=== PATIENT | male | born 1950 | race Caucasian/White ===

== ENCOUNTER 2020-10-06 17:16 | Emergency (ER) | payer MEDICARE ==
[~2020-10-06] VITALS: Ht 188 cm; Wt 97.5 kg
[2020-10-06] MEDS ORDERED: ONDANSETRON HCL INJ 2MG/ML 2ML 2 MG/ML VIAL IV STA (17:28)
[2020-10-06] MEDS ORDERED: MORPHINE SULFATE INJ 4 MG/ML INJ 1ML IV STA (17:28)
[2020-10-06] MEDS ORDERED: LACTATED RINGER'S 1,000 ML INJ SCH (17:30)
[2020-10-06] MEDS ORDERED: ASPIRIN 81 MG CHEW TAB PO ONE (17:30)
[2020-10-06] MEDS ORDERED: MORPHINE SULFATE INJ 2 MG/ML SYR ONE (17:38)
[2020-10-06] MEDS ORDERED: LACTATED RINGER'S 1,000 ML ONE (17:38)
[2020-10-06 17:41] LABS: BASOPHILS # (AUTO) 0.1 (0.0-0.1); BASOPHILS % 0.5 % (0.0-1.0); EOSINOPHILS # (AUTO) 0.2 (0.0-0.4); EOSINOPHILS % 1.5 % (0.0-6.0); HEMATOCRIT 43.6 % (38.2-49.6); HEMOGLOBIN 14.3 g/dL (14.0-18.0); LYMPHOCYTES # (AUTO) 2.8 (1.0-3.2); LYMPHOCYTES % 26.3 % (18.0-39.1); MEAN CORPUSCULAR HEMOGLOBIN 29.4 pg (28-32); MEAN CORPUSCULAR HGB CONC 32.8 g/dL (31-35); MEAN CORPUSCULAR VOLUME 89.7 fL (81-99); MONOCYTES # (AUTO) 0.6 (0.2-0.8); MONOCYTES % 5.3 % (4.4-11.3); NEUTROPHILS # (AUTO) 6.9 (2.1-6.9); NEUTROPHILS % 65.7 % (38.7-80.0); PLATELET COUNT 327 x10e3/uL (140-360); RED BLOOD COUNT 4.86 x10e6/uL (4.3-5.7); RED CELL DISTRIBUTION WIDTH 13.3 % (11.7-14.4)
[2020-10-06 18:06] LABS: ALANINE AMINOTRANSFERASE 60 IU/L (0-55); ALBUMIN 4.2 g/dL (3.5-5.0); ALBUMIN/GLOBULIN RATIO 1.4 (0.8-2.0); ALKALINE PHOSPHATASE 91 IU/L (40-150); ANION GAP 15.9 mmol/L (8-16); BLOOD UREA NITROGEN 17 mg/dL (7-26); BUN/CREATININE RATIO 16 (6-25); CALCIUM 8.8 mg/dL (8.4-10.2); CARBON DIOXIDE 23 mmol/L (22-29); CHLORIDE 106 mmol/L (98-107); CREATINE KINASE 191 IU/L (30-200); CREATININE, SERUM 1.09 mg/dL (0.72-1.25); EST GLOMERULAR FILTRATION RATE > 60 ML/MIN (60-); GLUCOSE 132 mg/dL (74-118); POTASSIUM 3.9 mmol/L (3.5-5.1); SODIUM 141 mmol/L (136-145)
[2020-10-06] MEDS ORDERED: IOPAMIDOL 370 MG/ML 200 ML INFUS..BTL INJ ONE (18:10)
[2020-10-06] MEDS ORDERED: SODIUM CHLORIDE 0.9% 50ML 50 ML ONE (18:10)
[2020-10-06] MEDS ORDERED: HYDROMORPHONE 1MG/1ML INJ IV STA (18:41)
[2020-10-06] MEDS ORDERED: LIDOCAINE 1% W/EPINEPHRINE 20 ML VIAL INJ ONE (18:45)
[2020-10-06] MEDS ORDERED: HYDROMORPHONE 1MG/1ML INJ ONE (19:44)
== END 2020-10-06 20:45 | disposition other institution (70) ==
LOC: ER 17:28
DX: J93.0 Spontaneous tension pneumothorax (principal); S22.41XA Multiple fractures of ribs, right side, initial encounter for closed fracture; W11.XXXA Fall on and from ladder, initial encounter; Y93.H2 Activity, gardening and landscaping; Y92.007 Garden or yard of unspecified non-institutional (private) residence as the place of occurrence of the external cause
CPT/HCPCS: 32551; 36415; 70450; 71045; 71260; 72125; 74177; 80053; 80320; 82550; 82553; 84484; 85025; 99285; J1170; J2270; J7121; Q9967